=== PATIENT | female | born 1950 | race African-American/Black ===

== ENCOUNTER 2018-06-02 05:12 | Inpatient (IN) | payer OTHER ==
[~2018-06-02] VITALS: Ht 172.7 cm; Wt 104.0 kg
[2018-06-02 05:23] VITALS: Ht 172.7 cm; Wt 104.0 kg
[2018-06-02 07:07] LABS: BASOPHIL % 0 % (0-2); PLATELET COUNT 42 x10^3mcL (130-400); RED CELL DISTRIBUTION WIDTH 29.9 % (11.5-14.5)
[2018-06-02 07:17] LABS: ALKALINE PHOSPHATASE 104 U/L (46-116); ALT/SGPT 41 U/L (14-59); AST/SGOT 46 U/L (15-37); BILIRUBIN TOTAL 2.1 mg/dL (0.20-1.00); CARBON DIOXIDE 12.7 mmol/L (21-32); CHLORIDE SERUM 108 mmol/L (98-107); CREATININE SERUM 2.3 mg/dL (0.6-1.0); FREE T4 1.31 ng/dL (0.76-1.46); GFR1 22 mL/min; GLUCOSE SERUM 111 mg/dL (74-106); LIPASE 188 IU/L (73-393); POTASSIUM SERUM 3.6 mmol/L (3.5-5.1); SODIUM SERUM 133 mmol/L (136-145)
[2018-06-02 07:30] LABS: ALBUMIN 1.1 g/dL (3.4-5.0); TOTAL PROTEIN, SERUM 2.9 g/dL (6.4-8.2)
[2018-06-02 07:45] LABS: CALCIUM < 5.0 mg/dL (8.5-10.1)
[2018-06-02 08:04] LABS: UA SPECIFIC GRAVITY 1.025 (1.005-1.035); microscopic required? YES; urine erythrocyte 3+ (NEGATIVE)
[2018-06-02] MEDS ORDERED: FLEET ENEMA135 ML RC (08:40)
[2018-06-02] MEDS ORDERED: DULCOLAX10 M1 RC (08:40)
[2018-06-02] MEDS ORDERED: COLACE100 MG PO (08:40)
[2018-06-02] MEDS ORDERED: LEVOTHYROXIN0.025 M2 PO (08:41)
[2018-06-02] MEDS ORDERED: ATRUD HHN ×2 (08:41→08:47)
[2018-06-02] MEDS ORDERED: MEGESTROL AC40 MG/ML PO (08:42)
[2018-06-02] MEDS ORDERED: LOV40I SQ (08:42)
[2018-06-02] MEDS ORDERED: OLANZAPINE5 M2 PO (08:43)
[2018-06-02] MEDS ORDERED: NORCO1 TA2 PO (08:43)
[2018-06-02] MEDS ORDERED: GOOD NEIGH1200 MG/15 PO (08:43)
[2018-06-02] MEDS ORDERED: SANOINT TOP (08:44)
[2018-06-02] MEDS ORDERED: SIMVASTATIN40 M1 PO (08:44)
[2018-06-02] MEDS ORDERED: GOOD NEIGHBOR P20 M2 PO (08:44)
[2018-06-02] MEDS ORDERED: TRAZODONE50 M1 PO (08:45)
[2018-06-02] MEDS ORDERED: ZOFRAN8 MG PO (08:45)
[2018-06-02] MEDS ORDERED: ULORIC40 M1 PO (08:45)
[2018-06-02 08:46] LABS: rbc morphology (normal/abnorm) ABNORMAL (NORMAL)
[2018-06-02] MEDS ORDERED: CAPECITABINE500 MG PO (08:46)
[2018-06-02 08:47] LABS: acanthocyte (spur cell) 3+
[2018-06-02] MEDS ORDERED: LACTULOSE10 GM/152 PO (08:47)
[2018-06-02] MEDS ORDERED: ELIQUIS5 M1 PO (08:47)
[2018-06-02 11:25] VITALS: BP 82/55
[2018-06-02 12:15] VITALS: BP 104/65
[2018-06-02 16:15] VITALS: BP 72/54
[2018-06-02 19:30] VITALS: BP 66/43
[2018-06-02 23:29] VITALS: BP 89/52
[2018-06-03] VITALS (7 sets, daily range): BP systolic 45–90; BP diastolic 35–52
[2018-06-03 05:39] LABS: BASOPHIL % 0 % (0-2)
[2018-06-03 05:40] LABS: PLATELET COUNT 49 x10^3mcL (130-400); RED CELL DISTRIBUTION WIDTH 29.8 % (11.5-14.5)
[2018-06-03 06:11] LABS: acanthocyte (spur cell) 2+; rbc morphology (normal/abnorm) ABNORMAL (NORMAL)
[2018-06-03 06:19] LABS: CALCIUM 6.6 mg/dL (8.5-10.1); CARBON DIOXIDE 14.8 mmol/L (21-32); CREATININE SERUM 3.2 mg/dL (0.6-1.0); MAGNESIUM 2.2 mg/dL (1.8-2.4); POTASSIUM SERUM 4.8 mmol/L (3.5-5.1)
== END 2018-06-03 22:31 | disposition expired | DRG 871 ==
LOC: ED 05:12 → IC 08:33
PROVIDERS: Emergency Medicine; ADMIT Internal Medicine
DX: A41.9 Sepsis, unspecified organism (principal); R65.21 Severe sepsis with septic shock; J96.01 Acute respiratory failure with hypoxia; N17.0 Acute kidney failure with tubular necrosis; E43 Unspecified severe protein-calorie malnutrition; I21.A1 Myocardial infarction type 2; J18.9 Pneumonia, unspecified organism; T83.511A Infection and inflammatory reaction due to indwelling urethral catheter, initial encounter; N39.0 Urinary tract infection, site not specified; C79.51 Secondary malignant neoplasm of bone; C78.7 Secondary malignant neoplasm of liver and intrahepatic bile duct; E83.51 Hypocalcemia; E83.42 Hypomagnesemia; C50.919 Malignant neoplasm of unspecified site of unspecified female breast; F17.210 Nicotine dependence, cigarettes, uncomplicated; Z17.0 Estrogen receptor positive status [ER+]; Z68.32 Body mass index [BMI] 32.0-32.9, adult; Z66 Do not resuscitate; Z51.5 Encounter for palliative care; Z92.21 Personal history of antineoplastic chemotherapy; Z86.718 Personal history of other venous thrombosis and embolism; Z79.01 Long term (current) use of anticoagulants; Y73.2 Prosthetic and other implants, materials and accessory gastroenterology and urology devices associated with adverse incidents; Y92.122 Bedroom in nursing home as the place of occurrence of the external cause
CPT/HCPCS: 36600; 83880; 84439; 87804; J0610; J1720; J2270; J2370; J2543; J3475; J3490; J7030; J7050; Q0092